=== PATIENT | male | born 1950 | race Caucasian/White ===

== ENCOUNTER → 2016-12-31 | Outpatient (CLI) | payer BC ==
[~2016-12-31] MED LIST: ASCA500 PO; ASPI81TA28 PO; ASTA1CAP4 PO; B-CO1CAP3 PO; BETA2500 PO; CARV3.122 PO; CHOL1TAB42 PO; COEN100C3 PO; COLL1CAP PO; FERR1TAB23 PO; GARL10007 PO; JOINT ADVANTAGE PO; LISI2.5T5 PO; METH500C8 PO; MULT-506 PO; REDCAP2 PO; ROSU5TAB PO; RXC5 PO; SELE200T23 PO; SNK PO; VITA1TAB4 PO
--- NOTE | 2016-12-31 13:20 | DIAGNOSTIC IMAGING REPORT ---
CHEST 2 VIEWS ROUTINE CLINICAL HISTORY: PRE OP TESTING preoperative evaluation COMPARISON STUDY: No previous studies for comparison. FINDINGS: Mild cardiomegaly. Fixed lateral hernia. Diaphragms smooth. Lungs are considered clear. Focal retrocardiac atelectasis. IMPRESSION: Small fixed hernia. Mild cardiomegaly. Electronically signed by: Ed Chowdary M.D. 12/31/2016 1:18 PM Dictated Date/Time: 12/31/2016 1:18 PM
== END | disposition home or self-care (01) ==
LOC: C.RAD 12:21
PROVIDERS: ATTEND Orthopaedic Surgery
DX: M75.102 Unspecified rotator cuff tear or rupture of left shoulder, not specified as traumatic (principal); Z01.812 Encounter for preprocedural laboratory examination; Z01.810 Encounter for preprocedural cardiovascular examination; M12.812 Other specific arthropathies, not elsewhere classified, left shoulder; I10 Essential (primary) hypertension; E78.5 Hyperlipidemia, unspecified; Z79.82 Long term (current) use of aspirin

== ENCOUNTER 2017-01-10 10:06 | Inpatient (IN) | payer BC, OTHER ==
[2016-12-31 13:31] LABS: BASO % 0.5 %; BASO ABS # 0.04 K/uL (0-0.2); COMPLETE YES; EOS % 1.8 %; HEMATOCRIT 45.1 % (42-52); IG% 0.2 %; LYMPH ABS # 1.59 K/uL (1.2-3.4); MEAN CORPUSCULAR HEMOGLOBIN 26.2 pg (25-34); MEAN CORPUSCULAR HGB CONC 32.4 g/dl (32-36); MONO % 9.2 %; NEUT % 69.3 %; PLATELET COUNT 282 K/uL (130-400); RED BLOOD COUNT 5.57 M/uL (4.7-6.1); WHITE BLOOD COUNT 8.35 K/uL (4.8-10.8)
[2016-12-31 13:38] LABS: PROTHROMBIN TIME (PATIENT) 10.7 SECONDS (9.0-12.0)
[2016-12-31 13:54] LABS: BLOOD UREA NITROGEN 14 mg/dl (7-18); BUN/CREATININE RATIO 15.9 (10-20); CALCIUM 9.4 mg/dl (8.5-10.1); CARBON DIOXIDE 32 mmol/L (21-32); CHLORIDE 103 mmol/L (98-107); CREATININE 0.88 mg/dl (0.60-1.40); GLUCOSE 88 mg/dl (70-99); POTASSIUM 4.7 mmol/L (3.5-5.1); SODIUM 140 mmol/L (136-145)
[2016-12-31 15:11] LABS: URINE APPEARANCE CLEAR (CLEAR); URINE BILIRUBIN NEG (NEG); URINE COLOR DK YELLOW; URINE NITRITE NEG (NEG); URINE SPECIFIC GRAVITY 1.024 (1.000-1.030); UROBILINOGEN NEG (NEG)
[2016-12-31 15:14] LABS: MANUAL MICROSCOPIC REQUIRED? NO; REVIEW REQ? NO
[2017-01-02 16:46] VITALS: BMI 28.0
--- NOTE | 2017-01-09 14:09 | HISTORY & PHYSICAL EXAMINATION ---
DATE OF ADMISSION: 01/10/2017 HISTORY AND PHYSICAL ADMISSION NOTE CHIEF COMPLAINT: Cuff arthropathy of the left shoulder. HISTORY OF PRESENT ILLNESS: Herman is a pleasant 66-year-old right hand dominant male who has been having left shoulder pain for 6-7 years. He does not recall any injuries or any trauma to his shoulder. He just noticed that he had weakness and decreased range of motion has been getting progressively worse. MRI of the shoulder showed a chronic retracted rotator cuff tear and advancing arthritis. After failing extensive conservative treatment including cortisone injections, he elected to proceed with reverse shoulder arthroplasty. PAST MEDICAL HISTORY: Significant for heart disease, hyperlipidemia, hypertension. PAST SURGICAL HISTORY: Significant for over double bypass procedure and a hernia repair. ALLERGIES: None. MEDICATIONS: Include aspirin 81 mg daily, Coreg 3.125 mg twice a day, lisinopril 2.5 mg daily, and Crestor 5 mg daily. FAMILY HISTORY: Noncontributory. SOCIAL HISTORY: He is single, he never drinks, he denies any alcohol use and he is very active. REVIEW OF SYSTEMS: He complains of left shoulder pain. All other pertinent review of systems is negative. PHYSICAL EXAMINATION: GENERAL: He is awake, alert and oriented x3. He is in no apparent distress. He is very pleasant. HEENT: Pupils are equal, round and reactive to light. Extraocular motion intact. Oral mucosa is pink and moist. HEART: Regular rate per radial pulse. LUNGS: Mag symmetrically bilaterally with no audible breath sounds. ABDOMEN: Soft, nontender, nondistended. MUSCULOSKELETAL: On physical examination of his shoulder, he only has about 120 degrees of forward elevation, 110 degrees of abduction. He has 4/5 muscle strength with full can testing and external rotation. He has about 10 degrees of external rotation. He has negative bear hug and belly press test, negative lag sign. He has crepitus to palpation throughout. IMAGING: X-rays of the shoulder do show a superiorly migrated humeral head with articulation with the acromion. There is also some glenohumeral osteoarthritis. MRI of the shoulder shows a large rotator cuff tear with muscle belly atrophy. Subscapularis appears to be intact. IMPRESSION: Cuff arthropathy of the left shoulder. PLAN: Will proceed with a Biomet comprehensive reverse left total shoulder arthroplasty. Postoperatively, he will be placed in an arm sling and kept overnight for postoperative medical management. [facility]
[2017-01-10] VITALS (10 sets, daily range): BP systolic 93–166; BP diastolic 60–104; PULSE 67–75; TEMP 34.4–36.8; O2SAT 93–100; Ht 157.5 cm; Wt 70.5 kg
[~2017-01-10] VITALS: Ht 157.5 cm; Wt 70.5 kg
[~2017-01-10 10:06] MED LIST changes: +ACETAMINOPHEN 500 MG TAB PO SCH; +BUPIVACAINE 0.5 % 5 MG/1 ML PF 10ML VIAL ONE; +CEFAZOLIN 2000 MG/60 ML D5W 60 ML IV SCH; +CLONIDINE HCL 100 MCG/ML SYRINGE ONE; +FAMOTIDINE 20 MG TAB PO SCH; +GABAPENTIN 300 MG CAP PO SCH; +LACTATED RINGER'S 1000ML 1,000 ML IV SCH; +LACTATED RINGER'S 1000ML IV SCH; +MEPIVACAINE HCL 1.5% 30 ML VIAL ONE; +ROPIVACAINE 5MG/ML 30 ML 150 MG, BUPIVACAINE/EPINEPHR 0.5% MPF 30 ML, KETOROLAC TROMETH... INFIL SCH; -RXC5 PO; -SNK PO
--- NOTE | 2017-01-10 10:24 | History & Physical Bridge Note ---
H&P Re-Evaluation Bridge Note: I have examined the patient, reviewed the History & Physical and in the interval since the performance of the History & Physical I have noted the following changes of clinical significance: No changes noted
[2017-01-10] MEDS ORDERED: DEXAMETHASONE SOD INJ 4 MG/ML VIAL ONE (10:42)
[2017-01-10] MEDS ORDERED: LIDOCAINE HCL 2% 2 ML VIAL (20MG/ML) ONE (10:42)
[2017-01-10] MEDS ORDERED: GLYCOPYRROLATE INJ 0.2 MG/ML VIAL ONE ×2 (10:42→13:15)
[2017-01-10] MEDS ORDERED: NEOSTIGMINE METHYLSULFATE 5 MG/5 ML SYR ONE (10:42)
[2017-01-10] MEDS ORDERED: ROCURONIUM BROMIDE 10 MG/ML 5 ML VIAL ONE (10:42)
[2017-01-10] MEDS ORDERED: PROPOFOL IV EMULSION 10 MG/ML 20 ML VIAL IV ONE (10:42)
[2017-01-10] MEDS ORDERED: ONDANSETRON INJ 2 MG/ML 2 ML VIAL ONE (10:42)
[2017-01-10] MEDS ORDERED: FENTANYL CITRATE INJ 50 MCG/1 ML 2 ML VIAL ONE (10:42)
[2017-01-10] MEDS ORDERED: MIDAZOLAM HCL 1 MG/ML 2ML VIAL ONE (10:42)
[2017-01-10] MEDS ORDERED: ORTHO JOINT ANESTHETIC ONE (10:45)
[2017-01-10] MEDS ORDERED: BUPIVACAINE/EPINEPHRINE 0.5% MPF 1:200,000 30 ML VIAL ONE (10:46)
[2017-01-10] MEDS ORDERED: BACITRACIN 50000 UNIT VIAL ONE (10:46)
[2017-01-10] MEDS ORDERED: ATROPINE SULFATE 0.1 MG/ML 5ML SYR IV PRN (12:45)
[2017-01-10] MEDS ORDERED: EpHEDrine SULFATE INJ 50 MG/ML AMP IV PRN (12:45)
[2017-01-10] MEDS ORDERED: SUCCINYLCHOLINE 100MG/5ML SYR IV ONE (12:46)
[2017-01-10] MEDS ORDERED: SODIUM CHLORIDE 0.9% INJ 10 ML VIAL ONE (12:47)
[2017-01-10] MEDS ORDERED: PHENYLEPHRINE HCL INJ 10 MG/ML VIAL ONE (12:47)
[2017-01-10] MEDS ORDERED: EpHEDrine SULFATE INJ 50 MG/ML AMP ONE (12:47)
[2017-01-10] MEDS ORDERED: KETOROLAC TROMETHAMINE 30 MG/ML VIAL ONE (13:20)
--- NOTE | 2017-01-10 13:32 | [facility] Post Operative Brief Note ---
Immediate Operative Summary Operative Date Jan 10, 2017. Pre-Operative Diagnosis Cuff arthropathy of the left shoulder Post-Operative Diagnosis Same as preop Procedure(s) Performed Left Reverse Total Shoulder Arthroplasty Surgeon Dr. Duarte Urogynecology Physician Surgeon(s) Audi Cruz PA-C Estimated Blood Loss 450ML Findings as above Specimens A. Left Humeral Head Complication(s) None Disposition Recovery Room / PACU
[2017-01-10] MEDS ORDERED: NALOXONE HCL 0.4 MG/1 ML VIAL/CARP IV PRN (13:45)
[2017-01-10] MEDS ORDERED: ONDANSETRON INJ 2 MG/ML 2 ML VIAL IV PRN (13:45)
[2017-01-10] MEDS ORDERED: METOCLOPRAMIDE HCL INJ 5 MG/ML 2 ML VIAL IV PRN (13:45)
[2017-01-10] MEDS ORDERED: MAGNESIUM HYDROXIDE SUSP 30 ML UDC PO PRN (13:45)
[2017-01-10] MEDS ORDERED: OXYCODONE HCL IR 5 MG TAB (IMMEDIATE RELEASE) PO PRN (13:45)
[2017-01-10] MEDS ORDERED: MoRPHine SULFATE 2 MG/ML CARP IV PRN (13:45)
[2017-01-10] MEDS ORDERED: BISACODYL 10 MG SUPP PR PRN (13:45)
[2017-01-10] MEDS ORDERED: SOD PHOSPHATE/SOD BIPHOSPHATE ENEMA 132 ML BTL PR PRN (13:45)
--- NOTE | 2017-01-10 14:25 | DIAGNOSTIC IMAGING REPORT ---
LEFT SHOULDER MIN 2 VIEWS ROUTINE CLINICAL HISTORY: Post shoulder surgery COMPARISON: Outside radiograph dated 10/28/2016 DISCUSSION: There are postsurgical changes of a reverse total left shoulder arthroplasty. There is no dislocation. There is an overlying surgical drain. There is air within the soft tissues consistent with recent surgery. On one of the 2 projections, there is a linear lucency inferior to the humeral spike. This is not confirmed on the other view. This likely reflects artifact from soft tissue air. If the patient has unusual postoperative pain, a CT scan could be obtained in follow-up to evaluate for occult fracture. IMPRESSION: Postsurgical changes of a reverse total left shoulder arthroplasty. Linear lucency inferior to the humeral spine, possibly artifactual. Electronically signed by: David June M.D. 01/10/2017 2:23 PM Dictated Date/Time: 01/10/2017 2:20 PM
--- NOTE | 2017-01-10 14:55 | Anesthesiology Progress Note ---
Anesthesia Post Op Note Date & Time Jan 10, 2017 at 14:55 Vital Signs Pain Intensity: 0 Vital Signs Past 12 Hours Date Time Temp Pulse Resp B/P (MAP) Pulse Ox O2 Delivery O2 Flow Rate FiO2 01/10/17 14:38 73 17 91 01/10/17 14:38 73 17 01/10/17 14:37 115/78 01/10/17 14:36 36.4 77 17 115/78 (88) 96 Nasal Cannula 2 01/10/17 14:33 75 15 01/10/17 14:33 75 15 91 01/10/17 14:32 117/80 01/10/17 14:28 77 16 01/10/17 14:28 78 16 92 01/10/17 14:27 121/76 01/10/17 14:23 76 17 100 01/10/17 14:23 76 17 01/10/17 14:22 134/86 01/10/17 14:18 73 19 100 01/10/17 14:18 72 19 01/10/17 14:17 139/87 01/10/17 14:16 70 19 01/10/17 14:16 71 19 01/10/17 14:12 128/85 01/10/17 14:11 75 24 01/10/17 14:11 76 24 01/10/17 14:07 141/85 01/10/17 14:06 69 21 01/10/17 14:06 70 21 01/10/17 14:03 136/86 01/10/17 13:56 35.9 71 16 136/86 100 Mask 10 01/10/17 10:53 36.8 70 20 166/104 97 Room Air Notes Mental Status: alert / awake / arousable, participated in evaluation Pt Amnestic to Procedure: Yes Nausea / Vomiting: adequately controlled Pain: adequately controlled Airway Patency, RR, SpO2: stable & adequate BP & HR: stable & adequate Hydration State: stable & adequate Anesthetic Complications: no major complications apparent
[2017-01-10] MEDS: D5W AND 1/2NSS + 20MEQ KCL 1,000 ML IV SCH (16:43)
[2017-01-10] MEDS: KETOROLAC TROMETHAMINE 15 MG/ML VIAL IV. SCH (18:31)
[2017-01-10] MEDS: CEFAZOLIN IV 2,000 MG in DEXTROSE 5% 50ML 50 ML IV SCH (20:32)
--- NOTE | 2017-01-10 20:44 | OPERATIVE REPORT ---
DATE OF OPERATION: 01/10/2017 PREOPERATIVE DIAGNOSIS: Cuff arthropathy of the left shoulder. POSTOPERATIVE DIAGNOSIS: Same. PROCEDURE: Left reverse total shoulder arthroplasty. SURGEON: Dr. Nguyễn Duarte. FELT MACHINE MECHANIC: Audi Cruz PA-C, whose assistance was necessary for positioning the arm and helping with instrumentation. ANESTHESIA: General with a left interscalene nerve block. COMPLICATIONS: None. CONDITION: Stable to PACU. INDICATIONS: Herman is a very pleasant 66-year-old male who presented to my office with complaints of a chronic increase in left shoulder pain. X-rays and clinical examination were diagnostic for rotator cuff arthropathy of the left shoulder. After failing conservative treatment, he elected to undergo a reverse shoulder arthroplasty. OPERATION AND FINDINGS: On 01/10/2017 he arrived at [facility] for the above procedure. He was seen in the preoperative holding area and the operative extremity was identified and signed. He was given a preoperative antibiotic and a left interscalene nerve block. He was taken back to the operating room, laid on the table in supine position and put under general anesthesia. He was then put into the beachchair position. The left shoulder was prepped and draped in a sterile fashion. Time-out was done and the patient and operative extremity was properly identified. A deltopectoral approach was used. Dissection was taken down through the fascia and the anterior shoulder was exposed. The long head of the biceps tendon had been traumatically tenotomized. The subscapularis was tenotomized off the lesser tuberosity with a centimeter of cuff tissue remaining. The humerus was then dislocated out of the joint. Sequential reaming up to a size 11 reamer was done. Off that reamer, a proximal humeral resection guide was placed and the proximal humerus was resected at 135 degrees of inclination and 20 degrees of retroversion. The glenoid was then exposed. Time was spent doing a complete circumferential capsular and labral release. A guidepin was then placed in the central inferior portion of the glenoid at 10 degrees of inclination. A mini base plate reamer was then used and the mini baseplate was then impacted into place. A single central screw was placed followed by superior and inferior locking screws. A 36 mm eccentric glenosphere was then placed. The proximal humerus was then exposed. Sequential broaching up to a size 11 broach was done. Off that broach a standard humeral tray was placed. The shoulder was reduced, brought through a full range of motion and felt to be stable. The broach was removed. The final size 11 implant was impacted into place. The humeral bearing was snapped onto the humeral tray and humeral tray was impacted onto the humeral stem. The shoulder was then reduced, brought through a full range of motion and felt to be stable. The surrounding soft tissues were then injected with 100 mL of an orthopedic pain control cocktail. The joint was then irrigated with 3 liters of normal saline solution with bacitracin. The subscapularis was then tenodesed back to the lesser tuberosity with transosseous FiberWire sutures and [id number] sutures. Hemostasis was controlled. A single drain was placed. The skin was closed with 2-0 Vicryl and 3-0 V-Loc suture and a Prineo dressing. He was then placed in a regular arm sling, extubated, transferred to a litter and taken to the postanesthesia care unit in stable condition. He tolerated the procedure well. IMPLANTS USED: I used a Biom[employer]ift comprehensive reverse left total shoulder arthroplasty system with a size 11 press fit mini stem, a single 35 mm central screw and 2 peripheral locking screws, a 36 mm standard eccentric glenosphere, a size 44 humeral tray and a size 44 humeral bearing. No cement was used during the case. The subscapularis was repaired. I attest to the content of the Intraoperative Record and any orders documented therein. Any exception s are noted below.
[2017-01-10] MEDS ORDERED: SENNA 8.6 MG TAB PO SCH (21:00)
[2017-01-10] MEDS: ACETAMINOPHEN IV 1,000 MG in EMPTY BAG 0 ML IV SCH (21:54)
[2017-01-10] MEDS: DOCUSATE SODIUM 100 MG CAP PO SCH (21:55)
[2017-01-10] MEDS: CARVEDILOL 3.125 MG TAB PO SCH (21:58)
[2017-01-11] MEDS: KETOROLAC TROMETHAMINE 15 MG/ML VIAL IV. SCH ×2 (00:29→06:13)
[2017-01-11] MEDS: D5W AND 1/2NSS + 20MEQ KCL 1,000 ML IV SCH (02:22)
[2017-01-11 03:13] VITALS: BP 90/33; PULSE 75; TEMP 36.5; O2SAT 93
[2017-01-11 03:27] VITALS: BP 95/55
[2017-01-11] MEDS: CEFAZOLIN IV 2,000 MG in DEXTROSE 5% 50ML 50 ML IV SCH (03:33)
[2017-01-11 05:55] LABS: HEMATOCRIT 33.7 % (42-52); MEAN CELL VOLUME 80.2 fL (80-100); MEAN CORPUSCULAR HEMOGLOBIN 26.2 pg (25-34); MEAN CORPUSCULAR HGB CONC 32.6 g/dl (32-36); PLATELET COUNT 233 K/uL (130-400); WHITE BLOOD COUNT 12.52 K/uL (4.8-10.8)
[2017-01-11] MEDS: ACETAMINOPHEN IV 1,000 MG in EMPTY BAG 0 ML IV SCH (06:13)
[2017-01-11 06:26] LABS: BUN/CREATININE RATIO 16.9 (10-20); CALCIUM 8.1 mg/dl (8.5-10.1); CREATININE 1.3 mg/dl (0.60-1.40); POTASSIUM 5.3 mmol/L (3.5-5.1)
[2017-01-11 07:33] VITALS: BP 133/70; PULSE 63; TEMP 37; O2SAT 99
[2017-01-11] MEDS: DOCUSATE SODIUM 100 MG CAP PO SCH (07:37)
[2017-01-11] MEDS: CARVEDILOL 3.125 MG TAB PO SCH (07:37)
[2017-01-11 08:20] VITALS: BP 120/80; PULSE 63; TEMP 36.7; O2SAT 98
[2017-01-11] MEDS ORDERED: SNK PO (08:34)
[2017-01-11] MEDS ORDERED: RXC5 PO (08:34)
--- NOTE | 2017-01-11 08:35 | Discharge Instructions ---
Discharge Instructions Date of Service Jan 11, 2017. Admission Reason for Admission: Left Shoulder Full Thickness Rotator Cuff Tear Discharge Discharge Diagnosis / Problem: Left Reverse Total Shoulder Discharge Goals Goal(s): Decrease discomfort, Improve function Activity Recommendations Activity Limitations: as noted below Shower/Bathe: may shower/bathe in 3 days . Instructions / Follow-Up Instructions / Follow-Up Activity and Therapy Recommendations: * Wear your sling for 3 weeks, unless otherwise instructed. You may remove your sling to shower and to dress, but otherwise, you should be in your sling at all times, including while sleeping * The shoulder replacement is very stable and you can use your hand while in the sling * Physical Therapy should start about 3-5 days from your day of surgery. Therapy will last about 8-12 weeks * You were shown a series of exercises in the hospital. Do these exercises daily including the exercises you were shown in physical therapy. Medications: * Narcotic You will likely be sent home from the hospital with a prescription for the narcotic pain medication that worked best throughout your stay. * Other medications may be prescribed for specific circumstances. If you have any questions, please call the office at . * Resume previous home medications unless otherwise instructed Dressing Care: You will likely have a Prineo dressing covering your incision. This looks like a glued on clear mesh dressing. Do not remove this dressing until you follow- up in my office in 2-3 weeks. Its pretty hard to peel it off. You may leave the Prineo dressing uncovered or cover it if it is draining a little bit. No further dressing care is required Showering: You may shower 3 days from the day of surgery. Leave the Prineo dressing intact and let the soapy shower water run over it. Do not scrub or soak the dressing or the incision. Things To Watch For: * Drainage from the incision site that occurs more than one week after your surgery. * Increased redness at the incision site. * Fever above 102 degrees Fahrenheit. * Unusual chest pain or shortness of breath. * Call [facility] at with any of the above problems Follow-Up Visit: Follow-up with Dr. Duarte 2-3 weeks after your day of surgery. An appointment was probably scheduled when you signed-up for surgery in the office. If you have any questions call Office Instructions: More detailed instructions as well as Frequently Asked Questions were provided in a folder by our office when you signed-up for surgery. Please review these instructions when you get home. If you have any further questions or concerns, please feel free to call the office at [phone] Current Hospital Diet Patient's current hospital diet: Regular Diet Discharge Diet Recommended Diet: Regular Diet Procedures Procedures Performed: Left Reverse Total Shoulder Arthroplasty Pending Studies Studies pending at discharge: no Medical Emergencies . Who to Call and When: Medical Emergencies: If at any time you feel your situation is an emergency, please call 911 immediately. . Non-Emergent Contact Non-Emergency issues call your: Surgeon Call Non-Emergent contact if: wound has increased drainage, wound has increased redness . "Provider Documentation" section prepared by Nguyễn Duarte. . VTE Core Measure Inpt VTE Proph given/why not?: Treatment not indicated
--- NOTE | 2017-01-11 08:54 | PROGRESS NOTE ---
DATE: 01/11/2017 CHIEF COMPLAINT: Status post left reverse total shoulder arthroplasty postop day #1. PROGRESS: Herman was seen and examined at bedside today. Overall, he is doing very well. He has little to no pain in his shoulder. He was able to get some sleep last night and he has no complaints. PHYSICAL EXAMINATION: GENERAL: His vital signs are stable on room air. He is voiding on his own. RIGHT SHOULDER: He is wearing his sling as instructed. His dressing is clean and dry and his drain is to suction. His radial, median and ulnar nerves were checked and intact at his wrist. His axillary nerve was not checked yet. LABORATORY DATA: He has an H&H today of 11.0 and 33.7. His glucose is a little high at 230. IMAGING DATA: X-rays postoperatively of the shoulder show the prosthesis to be in near-anatomic alignment without any evidence of dislocation. There is a slight lucency on the lateral view. I would consider this to be more of an artifact. There was no evidence of a fracture during the operation. IMPRESSION: Status post reverse left shoulder arthroplasty postop day #1. PLAN: At this point, he is doing very well. He will be in a sling for 3 weeks. His pain is controlled on oxycodone. Will discharge him to home later this morning after physical therapy. The nursing staff can change the dressing and pull the drain.
[2017-01-11] MEDS ORDERED: MULTIVITAMIN TAB PO SCH (09:00)
[2017-01-11] MEDS ORDERED: CHOLECALCIFEROL 1000 INTER.UNIT TAB PO SCH (09:00)
[2017-01-11] MEDS ORDERED: RED YEAST RICE EXTRACT PO SCH (09:00)
[2017-01-11] MEDS ORDERED: ASTAXANTHIN PO SCH (09:00)
[2017-01-11] MEDS ORDERED: NON-FORMULARY MEDICATION (Coenzyme Q10 (Ubidecarenone) (Co Q-10) 1 TAB) PO SCH (09:00)
[2017-01-11] MEDS ORDERED: SELENIUM PO SCH (09:00)
[2017-01-11] MEDS ORDERED: ASCORBIC ACID 500 MG TAB PO SCH (09:00)
[2017-01-11] MEDS ORDERED: PANTOprazole SOD 40 MG TAB PO SCH (09:00)
[2017-01-11] MEDS ORDERED: METHYLSULFONYLMETHANE PO SCH (09:00)
[2017-01-11] MEDS ORDERED: ASPIRIN 81 MG ECTAB PO SCH (09:00)
[2017-01-11] MEDS ORDERED: TOCOPHERYL, DL-ALPHA 400 INTER.UNIT CAP PO SCH (09:00)
[2017-01-11] MEDS ORDERED: VITAMIN B COMPLEX TAB PO SCH (09:00)
[2017-01-11] MEDS ORDERED: GARLIC PO SCH (09:00)
[2017-01-11] MEDS ORDERED: LISINOPRIL 2.5 MG TAB PO SCH (09:00)
[2017-01-11] MEDS ORDERED: [UNRECOGNIZED DRUG - OTHER] PO SCH (09:00)
[2017-01-11] MEDS ORDERED: [UNRECOGNIZED DRUG - OTHER] PO SCH (09:00)
[2017-01-11] MEDS ORDERED: ROSUVASTATIN CALCIUM 5 MG TAB PO SCH (09:00)
--- NOTE | 2017-01-11 09:01 | DISCHARGE SUMMARY ---
DISCHARGE DIAGNOSIS: Rotator cuff arthropathy of the left shoulder. PROCEDURE: Left reverse total shoulder arthroplasty on 01/10/[address] Nguyễn Duarte. DISCHARGE INSTRUCTIONS: 1. Oxycodone 5-10 mg every 4 hours as needed for pain. 2. Senokot 2 tabs at night as needed. 3. Aspirin 81 mg daily. 4. Coreg 3.125 mg twice a day. 5. Lisinopril 2.5 mg daily. 6. Crestor 5 mg daily. 7. Continue all other home supplementation. 8. Left arm sling for 3 weeks. 9. Follow up with Dr. Duarte in 2 weeks. 10. Call the office of Dr. Duarte with any questions or concerns. HOSPITAL COURSE: Herman is a very pleasant 66-year-old male who presented to my office with chronic pain and weakness of his left shoulder. X-rays and clinical examination were diagnostic for cuff arthropathy of the left shoulder. After failing conservative treatment, he elected to undergo a reverse shoulder arthroplasty. On 01/10/2017, he arrived at [facility] and underwent a reverse left shoulder replacement without complications. He had a general anesthetic and a left interscalene nerve block. Postoperatively, he was discharged to general orthopedic floors. His hospital course was uneventful. On postop day #1, his H&H was stable at 11.0 and 33.7. He was not having much pain in the shoulder. He was neurovascularly intact. He participated well with physical therapy. The nursing staff changed the dressing, pulled the drain, and he was subsequently discharged to home with oral pain medications and the above instructions.
[2017-01-11 09:29] VITALS: O2SAT 98
[2017-01-11 09:52] VITALS: BP 120/80; PULSE 63; TEMP 36.7; O2SAT 98
== END 2017-01-11 11:45 | disposition home or self-care (01) | DRG 508 ==
LOC: C.ACU 10:06 → C.3E 11:15 → ENRESERV 15:04
PROVIDERS: ADMIT Orthopaedic Surgery; ATTEND Orthopaedic Surgery
PROC: 0RQK0ZZ Repair Left Shoulder Joint, Open Approach (ICD-10-PCS; principal; 2017-01-10 12:45)
DX: M12.812 Other specific arthropathies, not elsewhere classified, left shoulder (principal); I10 Essential (primary) hypertension; E78.5 Hyperlipidemia, unspecified; Z79.82 Long term (current) use of aspirin